=== PATIENT | female | born 1980 | race Caucasian/White ===

== ENCOUNTER 2021-03-28 08:41 | Outpatient (CLI) | payer OTHER, SELFPAY ==
[2021-03-28 10:46] LABS: SARS-CoV-2 RNA PCR Positive (Negative)
== END 2021-03-28 08:42 | disposition home or self-care (01) ==
LOC: CHSLAB 08:46
PROVIDERS: PCP Physician Assistant; Visit Provider Physician Assistant
DX: U07.1 COVID-19 (principal); B34.9 Viral infection, unspecified
CPT/HCPCS: C9803; U0003; U0005